=== PATIENT | female | born 1980 | race Caucasian/White ===

== ENCOUNTER 2016-10-02 08:18 | Emergency (ER) | payer OTHER ==
[~2016-10-02] VITALS: Ht 165.1 cm; Wt 83.0 kg
[~2016-10-02 08:18] MED LIST: GLUCOMTESTSTRIPS XX; MELO7.5 PO; METF500 PO; NORE1TAB57 PO; ONETMIS7; [UNRECOGNIZED DRUG - CODE]
[2016-10-02 08:20] VITALS: BP 118/78; PULSE 104; RESP 16; TEMP 98.7; O2SAT 99
--- NOTE | 2016-10-02 08:39 | PD ---
HPI . Upper respiratory symptoms Chief Complaint: ENT Complaint Time Seen by Provider: 08:27 Travel History International Travel<30 days: No Contact w/Intl Traveler<30days: No Traveled to known affect area: No History of Present Illness HPI Patient presents with a 2 day history of congestion, sore throat, ear pain, headache. No fever. She has not been taking anything for it. PFSH Past Medical History Diabetes: Yes ?: Not LMP: 2 WEEK AGO Social History Tobacco Use: No Allergies-Medications (Allergen,Severity, Reaction): Coded Allergies: No Known Allergies (Unverified , 10/02/16) Reported Meds & Prescriptions Reported Meds & Active Scripts Active Glucophage 500 mg (Metformin HCl) 500 Mg Tab 500 Mg PO BID Loestrin 21 .01/07 (Ethinyl Estradiol/Norethindrone) 21 Tab Pack 1 Tab PO DAILY TAKE 1 TABLET DAILY FOR 21 DAYS EACH MONTH DIRECTED Mobic 7.5 Mg Tab (Meloxicam) 7.5 Mg Tab 7.5 Mg PO DAILY Glucometer Test Strips (Glucomteststrips) Box 1 Box XX BID Onetouch Delica Lancets E (Lancets) 1 Mis Mis Box .XX BID Onetouch Ultra Control (Blood Glucose Calibration) Ult Cont Esther Units .XX BID Review of Systems Except as stated in HPI: all other systems reviewed are Neg General / Constitutional: No: Fever, Chills Eyes: No: Drainage, Redness HENT: Positive: Headaches, Sore Throat, Rhinorrhea, Congestion Gastrointestinal: No: Nausea, Vomiting, Diarrhea Musculoskeletal: Positive: Myalgias Physical Exam Narrative GENERAL: The patient is writing her H&P. She is worse. SKIN: Warm and dry. HEAD: Atraumatic. Normocephalic. EYES: Pupils equal and round. ENT: No nasal bleeding or discharge. Mucous membranes pink and moist. TMs are shiny álvarez with good light reflexes. Oropharynx has purulent drainage with tonsillar enlargement. There is no edema. NECK: Trachea midline. No cervical lymphadenopathy. Neck is supple. CARDIOVASCULAR: Regular rate and rhythm. Heart sounds are normal. RESPIRATORY: No accessory muscle use. Lungs are clear with full air movement throughout. GASTROINTESTINAL: Abdomen soft, non-tender, nondistended. MUSCULOSKELETAL: No obvious deformities. No edema. NEUROLOGICAL: Awake and alert. No obvious cranial nerve deficits. Motor grossly within normal limits. Normal speech. PSYCHIATRIC: Appropriate mood and affect; insight and judgment normal. Data Data Last Documented VS Vital Signs Date Time Temp Pulse Resp B/P Pulse Ox O2 Delivery O2 Flow Rate FiO2 10/02/16 08:20 98.7 104 16 118/78 99 MDM Medical Decision Making Medical Screen Exam Complete: Yes Emergency Medical Condition: Yes Differential Diagnosis Differential diagnosis includes but is not limited to influenza, upper respiratory infection, bronchitis, pneumonia Narrative Course Patient presents with symptoms. She has purulent drainage in her oropharynx with tonsillar enlargement. Diagnosis Primary Impression: URI (upper respiratory infection) Qualified Code: J06.9 - Viral upper respiratory tract infection Additional Instructions: I recommend the use of a Neti Pot. You may use a nasal spray such as Afrin for up to 3 days as needed for nasal congestion. You may take an xsax-lau-rflpokw antihistamine such as Zyrtec, Alicia or Claritin as needed for runny secretions. You may take pseudoephedrine as needed for congestion. You will need to sign for this at the pharmacy. You may take plain Mucinex, 1200 mg twice a day as needed for thick secretions. You may take a cough syrup such as Delsym as needed for cough. UA use cough drops or a throat spray as needed for throat discomfort. Motrin as needed for fever and body aches and headache. Disposition: 01 DISCHARGE HOME Condition: Stable Delaney Stovall MD Oct 02, 2016 08:39
[2016-10-02] MEDS ORDERED: METF500T PO (08:56)
[2016-10-02] MEDS ORDERED: NORE1TAB57 PO (08:56)
== END 2016-10-02 09:11 | disposition home or self-care (01) ==
LOC: PHED 08:18
DX: J06.9 Acute upper respiratory infection, unspecified (principal); E11.9 Type 2 diabetes mellitus without complications; Z79.4 Long term (current) use of insulin
CPT/HCPCS: 99283

== ENCOUNTER 2017-07-10 10:05 | Emergency (ER) | payer MEDICAID, OTHER ==
[~2017-07-10] VITALS: Ht 165.1 cm; Wt 83.0 kg
[~2017-07-10 10:05] MED LIST changes: -GLUCOMTESTSTRIPS XX; -MELO7.5 PO; -METF500 PO; +METF500T PO; -ONETMIS7; -[UNRECOGNIZED DRUG - CODE]
[2017-07-10 10:09] VITALS: BP 133/69; PULSE 85; RESP 16; TEMP 98.3; O2SAT 99
[2017-07-10] MEDS ORDERED: CLIN300C5 PO (10:29)
--- NOTE | 2017-07-10 10:29 | PD ---
HPI . Toothache Chief Complaint: Oral / Dental Pain or Problem Time Seen by Provider: 10:20 Travel History International Travel<30 days: No Contact w/Intl Traveler<30days: No Traveled to known affect area: No History of Present Illness HPI Patient presents with chief complaint of a toothache. Onset was 3 days ago. She has developed progressively worsening swelling of her right jaw. She rates her pain 9/10. She states that she tried to get in to see a dentist but cannot see one until Friday. In addition, the patient states that she is a diabetic. She is supposed to be on metformin. She has been out of her metformin for 1.5 months. She is unsure of her dose of metformin. She states that she just takes it once a day because her diabetes is very mild. PFSH Past Medical History Hx Anticoagulant Therapy: No Autoimmune Disease: Yes (RA?) Diabetes: Yes Patient Takes Glucophage: No (NO INSURANCE) Influenza Vaccination: No ?: Not Past Surgical History Eye Surgery: Yes (left eye as a child) Other Surgery: Yes (adenoids) Social History Alcohol Use: No Tobacco Use: No Substance Use: No Allergies-Medications (Allergen,Severity, Reaction): Coded Allergies: No Known Allergies (Unverified Adverse Reaction, Unknown, 07/10/17) Reported Meds & Prescriptions Reported Meds & Active Scripts Active Clindamycin (Clindamycin HCl) 300 Mg Cap 600 Mg PO Q8H 10 Days Reported Metformin (Metformin HCl) 500 Mg Tab 500 Mg PO BIDPC With meals Review of Systems Except as stated in HPI: all other systems reviewed are Neg General / Constitutional: No: Fever, Chills HENT: Positive: Dental Difficulties, Other (facial swelling) Physical Exam Narrative GENERAL: Awake and alert and in no acute distress. SKIN: Warm and dry. No redness or warmth of the skin of the face. HEAD: Normocephalic/atraumatic. Swelling of the right jaw. EYES: Pupils are equal. Extraocular movements are intact. ENT: Severe dental caries involving her right mandibular second molar. It is rotten to below the gumline. It is tender to percussion. NECK: Normal range of motion. No cervical lymphadenopathy. CARDIOVASCULAR: Regular rate and rhythm. RESPIRATORY: Nonlabored respirations. MUSCULOSKELETAL: Atraumatic. NEUROLOGICAL: Nonfocal. PSYCHIATRIC: Appropriate mood and affect. Data Data Last Documented VS Vital Signs Date Time Temp Pulse Resp B/P (MAP) Pulse Ox O2 Delivery O2 Flow Rate FiO2 07/10/17 10:09 98.3 85 16 133/69 (90) 99 Orders Orders Bedside Glucose MARIBELLEM (07/10/17 10:23) MDM Medical Decision Making Medical Screen Exam Complete: Yes Emergency Medical Condition: Yes Differential Diagnosis Differential diagnosis of a toothache includes but is not limited to dental caries, dental abscess, gingivitis, drug-seeking behavior. Narrative Course This patient presents with a dental abscess. It will be treated with clindamycin. She also has a history of diabetes and is out of her metformin. I will check her fingerstick blood sugar. Blood sugar is 130. I will not prescribe metformin. Diagnosis Primary Impression: Dental abscess Patient Instructions: Dental Abscess (ED), General Instructions, Meal Planning with Diabetes Exchanges (DC) Med/Other Pt SpecificInfo: Prescription(s) given Scripts Clindamycin (Clindamycin) 300 Mg Cap 600 MG PO Q8H for Infection for 10 Days, #60 CAP 0 Refills Prov: Delaney Stovall MD 07/10/17 Disposition: 01 DISCHARGE HOME Condition: Stable Delaney Stovall MD Jul 10, 2017 10:29
== END 2017-07-10 11:03 | disposition home or self-care (01) ==
LOC: PHEFT 10:05
DX: K04.7 Periapical abscess without sinus (principal); E11.9 Type 2 diabetes mellitus without complications; Z79.84 Long term (current) use of oral hypoglycemic drugs
CPT/HCPCS: 99283

== ENCOUNTER 2017-10-07 10:34 | Emergency (ER) | payer MEDICAID, OTHER ==
[~2017-10-07] VITALS: Ht 165.1 cm; Wt 85.5 kg
[~2017-10-07 10:34] MED LIST changes: +CLIN300C5 PO; -NORE1TAB57 PO
[2017-10-07 10:44] VITALS: BP 124/60; PULSE 87; RESP 18; TEMP 98.2; O2SAT 99
[2017-10-07] MEDS ORDERED: CLINDAMYCIN PHOS 600 MG/4 ML VIAL IM ONE (11:45)
[2017-10-07] MEDS ORDERED: MAGICADU2 SWISH-SWAL (11:57)
[2017-10-07] MEDS ORDERED: CLIN300C5 PO (11:57)
[2017-10-07] MEDS ORDERED: HYDR-3516 PO (11:57)
--- NOTE | 2017-10-07 12:01 | PD ---
HPI Chief Complaint: Oral / Dental Pain or Problem Time Seen by Provider: 11:27 Travel History International Travel<30 days: No Contact w/Intl Traveler<30days: No Traveled to known affect area: No History of Present Illness HPI 37-year-old female that presents to the ED for evaluation of left-sided mouth pain and swelling. Patient has had this for about a week. Per patient the swelling only no worse on the weekend. Denies any urinary or bowel movement issues. No chest pain or shortness of breath. No fevers chills or sweats. She notes she has not been patient in that side of the mouth and per patient she has an appointment but she cannot be seen until she gets infection taken care of. She denies any recent injury. Per patient the pain is 8 out of 10. His been taking Advil with minimal relief. No urinary or bowel movement issues. No other medical issues at this time. PFSH Past Medical History Hx Anticoagulant Therapy: No Autoimmune Disease: Yes (RA?) Diabetes: Yes Patient Takes Glucophage: No (has script has not started yet) Influenza Vaccination: No ?: Not LMP: 5 DAYS GO Past Surgical History Eye Surgery: Yes (left eye as a child) Other Surgery: Yes (adenoids) Social History Alcohol Use: No Tobacco Use: No Substance Use: No Allergies-Medications (Allergen,Severity, Reaction): Coded Allergies: No Known Allergies (Unverified Adverse Reaction, Unknown, 10/07/17) Reported Meds & Prescriptions Reported Meds & Active Scripts Active Magic Mouthwash Adult Liq (Multi-Ingredient Mouthwash/Gargle) 120 Ml Susp 5 Ml SWISH-SWAL ACHS Each 5mL contains: Nystatin 200,000units, Diphenhydramine 4.25mg, Viscous Lidocaine 10mg, Maher syrup 0.8 mL Hydrocodone-Acetamin 5-325 mg (Hydrocodone/Acetaminophen) 5 Mg-325 Mg Tablet 1 Tab PO Q6HR PRN Clindamycin (Clindamycin HCl) 300 Mg Cap 600 Mg PO Q8H 10 Days Reported Metformin (Metformin HCl) 500 Mg Tab 500 Mg PO BIDPC With meals Review of Systems Except as stated in HPI: all other systems reviewed are Neg Physical Exam Narrative GENERAL: SKIN: Warm and dry. HEAD: Atraumatic. Normocephalic. EYES: Pupils equal and round. No scleral icterus. No injection or drainage. ENT: No nasal bleeding or discharge. Mucous membranes pink and moist. Tongue is midline. No uvula deviation. Dental: Patient has no dentition noted on the lower left jaw. Multiple cavities noted. Patient does have soft tissue swelling of the left cheek with some lymphadenopathy. No obvious abscess or deformity noted however. NECK: Trachea midline. No JVD. CARDIOVASCULAR: Regular rate and rhythm. RESPIRATORY: No accessory muscle use. Clear to auscultation. Breath sounds equal bilaterally. GASTROINTESTINAL: Abdomen soft, non-tender, nondistended. Hepatic and splenic margins not palpable. MUSCULOSKELETAL: Extremities without clubbing, cyanosis, or edema. No obvious deformities. NEUROLOGICAL: Awake and alert. No obvious cranial nerve deficits. Motor grossly within normal limits. Five out of 5 muscle strength in the arms and legs. Normal speech. PSYCHIATRIC: Appropriate mood and affect; insight and judgment normal. Data Data Last Documented VS Vital Signs Date Time Temp Pulse Resp B/P (MAP) Pulse Ox O2 Delivery O2 Flow Rate FiO2 10/07/17 10:44 98.2 87 18 124/60 (81) 99 Orders Orders Clindamycin Inj (Cleocin Inj) (10/07/17 11:45) MDM Medical Decision Making Medical Screen Exam Complete: Yes Emergency Medical Condition: Yes Medical Record Reviewed: Yes Differential Diagnosis Dental abscess versus dental infection versus dentalgia Narrative Course 37-year-old female that presents to the ED for evaluation of dental abscess. Patient was properly examined and was found to have signs and symptoms consistent appears to be dental infection. No obvious abscess noted on exam but she does have a lot of swelling. She is diabetic. At this time I will start patient on clindamycin him a shot of this year. She was given a prescription for clindamycin and Lortab and Magic mouthwash. Told to continue taking Aleve [id number]. Follow with PCP. See ED worsening symptoms. Diagnosis Primary Impression: Dentalgia Patient Instructions: General Instructions Additional Instructions: Take medications as prescribed. Follow-up with PCP. See ED for any worsening symptoms. Do not drink or drive while taking pain medication. Apply ice or heat as needed for pain Med/Other Pt SpecificInfo: Prescription(s) given Scripts Fnrhtcpx-Eayytuudvoydttl-Urmpmtrkn Liq (Magic Mouthwash Adult Liq) 120 Ml Susp 5 ML SWISH-SWAL ACHS for Mouth sores, #120 ML 0 Refills Each 5mL contains: Nystatin 200,000units, Diphenhydramine 4.25mg, Viscous Lidocaine 10mg, Maher syrup 0.8 mL Prov: Anson Miller MD 10/07/17 Hydrocodone/Acetaminophen (Hydrocodone-Acetamin 5-325 mg) 5 Mg-325 Mg Tablet 1 TAB PO Q6HR Y for PAIN SCALE 1 TO 10, #14 Prov: Anson Miller MD 10/07/17 Clindamycin (Clindamycin) 300 Mg Cap 600 MG PO Q8H for Infection for 10 Days, #60 CAP 0 Refills Prov: Anson Miller MD 10/07/17 Disposition: 01 DISCHARGE HOME Condition: Stable Jaxson Uribe Oct 07, 2017 12:01
== END 2017-10-07 13:02 | disposition home or self-care (01) ==
LOC: PHEFT 10:34
DX: K08.89 Other specified disorders of teeth and supporting structures (principal); E11.9 Type 2 diabetes mellitus without complications; Z79.84 Long term (current) use of oral hypoglycemic drugs
CPT/HCPCS: 96372